=== PATIENT | female | born 1960 | race Caucasian/White ===

== ENCOUNTER 2019-05-07 22:17 | Emergency (ER) | payer BC ==
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
[2019-05-08] MEDS ORDERED: KETOROLAC 30 MG/ML VIAL IM ONE (00:53)
[2019-05-08] MEDS ORDERED: ORPHENADRINE CITRATE 60MG/2ML VIAL IM ONE (00:53)
== END 2019-05-08 01:23 | disposition home or self-care (01) ==
LOC: ER 22:17
DX: G89.11 Acute pain due to trauma (principal); R07.89 Other chest pain; V43.5 Car driver injured in collision with car, pick-up truck or van in traffic accident; W22.10XD Striking against or struck by unspecified automobile airbag, subsequent encounter; F17.210 Nicotine dependence, cigarettes, uncomplicated
CPT/HCPCS: 99283; 96372; 99284; 71120; J1885; J2360